=== PATIENT | male | born 1965 | race Two or more races ===

== ENCOUNTER 2018-06-13 07:54 | Outpatient (CLI) | payer OTHER | END 2018-06-13 08:29 | disposition home or self-care (01) | LOC: RAD 07:54 | DX: R07.89 Other chest pain (principal); Z01.818 Encounter for other preprocedural examination; I10 Essential (primary) hypertension ==

== ENCOUNTER → 2018-10-01 | Outpatient (CLI) | payer OTHER | END | disposition home or self-care (01) | LOC: RAD 10:39 | DX: M25.561 Pain in right knee (principal) ==